=== PATIENT | male | born 1980 | race Caucasian/White ===

== ENCOUNTER 2016-09-02 12:52 | Outpatient (CLI) | payer OTHER | END 2016-09-02 12:53 | disposition home or self-care (01) | DX: R07.9 Chest pain, unspecified (principal); R55 Syncope and collapse; R06.00 Dyspnea, unspecified ==

== ENCOUNTER 2017-02-22 23:22 | Emergency (ER) | payer OTHER ==
[2017-02-22 23:33] VITALS: BP 138/91
--- NOTE | 2017-02-23 00:14 | ED Physician Documentation ---
PD HPI LOWER EXT INJURY - Stated complaint Stated Complaint: LT LEG PAIN - Chief complaint Chief Complaint: Ext Problem - History obtained from History obtained from: Patient - History of Present Illness PD HPI LOW EXT INJURY LOCATION: Left, Upper leg, Lower leg Timing - onset: Today Timing - details: Gradual onset, Still present Worsened by: Moving, Palpating Associated symptoms: Swelling Contributing factors: No: Anticoagulated, Prior ortho surgery, Prosthetic joint Similar symptoms before: Has not had sx before Recently seen: Not recently seen - Additional information Additional information: Patient is a 36 year old male with no significant past medical history who is presenting to the emergency department for leg pain and swelling after a flight. patient states that he flew back today from [place] and he noticed that his left leg felt real swollen and he had pain throught his leg. patient denies any trauma. Review of Systems Constitutional: denies: Fever, Chills Eyes: denies: Decreased vision Ears: denies: Ear pain, Drainage/discharge Nose: denies: Rhinorrhea / runny nose, Congestion Throat: denies: Sore throat Cardiac: denies: Chest pain / pressure, Palpitations Respiratory: reports: Cough : denies: Dysuria, Frequency Skin: denies: Rash, Lesions Musculoskeletal: reports: Extremity pain, Extremity swelling Neurologic: denies: Numbness Immunocompromised: denies: Immunocompromised PD PAST MEDICAL HISTORY - Past Medical History Cardiovascular: None Respiratory: None Endocrine/Autoimmune: None - Past Surgical History HEENT: Other - Present Medications Home Medications: Ambulatory Orders Medication Instructions Recorded Confirmed Ibuprofen 800 mg PO TID #20 tablet 03/06/16 Albuterol Sulfate [Proair Hfa 02/22/17 Inhaler] Azithromycin [Azithromycin] 02/22/17 Benzonatate [Tessalon] 02/22/17 Lidocaine Patch 5% [Lidoderm Patch] 1 each PATCH DAILY #10 patch 02/23/17 - Allergies Allergies/Adverse Reactions: Allergies Allergy/AdvReac Type Severity Reaction Status Date / Time No Known Drug Allergies Allergy Verified 03/06/16 12:40 PD ED PE NORMAL - General General: Alert and oriented X 3, No acute distress - HEENT HEENT: Atraumatic, PERRL, Moist mucous membranes, Pharynx benign - Neck Neck: Supple, no meningeal sign - Cardiac Cardiac: RRR, No murmur - Respiratory Respiratory: No respiratory distress - Abdomen Abdomen: Soft, Non tender, Non distended - Derm Derm: Normal color, Warm and dry, No rash - Neuro Neuro: Alert and oriented X 3, No motor deficit, No sensory deficit, Normal speech - Psych Psych: Normal mood, Normal affect PD ED PE EXPANDED - Extremities Extremities: Tenderness, Left leg (mild swelling and tenderness), Pedal edema L Results - Vitals Vitals: Vital Signs - 24 hr 02/22/17 23:25 Temperature 37.1 C Heart Rate 88 Respiratory 18 Rate Blood Pressure 138/91 H O2 Saturation 98 Oxygen O2 Source Room air - Rads (name of study) dvt study Radiology: Final report received (no dvt) PD MEDICAL DECISION MAKING - ED course Complexity details: reviewed old records, reviewed results, re-evaluated patient , considered differential, d/w patient, d/w family ED course: Patient was seen and examined at bedside. Imaging was ordered. when imaging was completed results were reviewed. there was no sign of dvt. Patient required no further work up at this time. patient was stable for discharge with outpatient follow up. Departure - Departure Disposition: 01 Home, Self Care Clinical Impression: Muscle spasm of left lower extremity Condition: Good Instructions: ED Spasm Muscle Prescriptions: Lidocaine Patch 5% [Lidoderm Patch] 1 each PATCH DAILY #10 patch Comments: Your diagnostics today were within normal limits. the pain is likely from a spasm from sitting for so long. You should try to ambulate and stretch. You should drink plenty of fluids and can take motrin or tylenol as needed for pain. you should follow up with your base doctor for your other symptoms. You may return to the emergency department at any time for new, worsening or uncontrollable symptoms.
--- NOTE | 2017-02-23 00:30 | Ultrasound Preliminary Report ---
Exam: US Duplex Ext Veins Left IMPRESSION: No evidence for deep venous thrombosis. [facility] SITE ID: [id number]
--- NOTE | 2017-02-23 00:33 | Ultrasound Report ---
EXAM: LEFT LOWER EXTREMITY VENOUS ULTRASOUND EXAM DATE: 02/23/2017 12:14 AM. CLINICAL HISTORY: Unilateral left leg pain and swelling post flight. COMPARISON: None. TECHNIQUE: Real-time sonographic vascular imaging was performed by the poultry farm supervisor through the lower extremity utilizing both color-flow and Doppler spectral analysis. Multiple pharmaceutical service representative static maite ges were saved for review. FINDINGS: Common Femoral Vein (CFV): Normal. CFV-GSV Junction: Normal. Profunda Femoral Vein (PFV): Normal. Femoral Vein (FV) Prox: Normal. Femoral Vein (FV) Mid: Normal. Femoral Vein (FV) Dist: Normal. Popliteal Vein: Normal. Posterior Tibial Veins: Normal. Peroneal Veins: Normal. Other: None. IMPRESSION: No evidence for deep venous thrombosis. [facility] Referring Provider Line: [phone] SITE ID: [id number]
== END 2017-02-23 00:29 | disposition home or self-care (01) ==
LOC: ED 23:22
DX: M62.838 Other muscle spasm (principal)
CPT/HCPCS: 99283